=== PATIENT | female | born 1970 | race Two or more races ===

== ENCOUNTER 2016-12-05 18:00 | Inpatient (IN) | payer OTHER ==
[~2016-12-05] VITALS: Ht 162.6 cm; Wt 64.2 kg
[2016-12-05 18:15] LABS: Allen Test Yes; Base Excess -4.2 mmol/L (-2.0-2.0); Blood 02Sat 90.2 % (96-100); Blood MetHb 0.3 % (0.0-1.5); HHb 9.7 % (0.0-5.0); MODE MASK - BIPAP; PCO2 26.3 mmHg (35.0-45.0); PCO2(T) 28.1 mmHg (35.0-45.0); PO2 59.9 mmHg (80.0-100.0); PO2(T) 66.5 mmHg (80.0-100.0); Sample Type Arterial; Spont Vt 502; pH 7.454 (7.350-7.450)
[2016-12-05] MEDS ORDERED: methylPREDNISolone SOD SUCC 125 MG/2 ML VL IV ONE (18:15)
[2016-12-05] MEDS ORDERED: IPRATROPIUM BROM 0.5 MG/2.5ML INH SOL HHN ONE (18:15)
[2016-12-05] MEDS ORDERED: ALBUTEROL SULF 2.5 MG/0.5ML(0.5%) NEB SOLN HHN ONE (18:15)
[2016-12-05] MEDS ORDERED: LEVOFLOXACIN 500MG 100 ML IV ONE (18:15)
[2016-12-05] MEDS ORDERED: NOREPINEPHRINE BITARTRATE 250 ML IV SCH (19:30)
[2016-12-05 19:48] LABS: Basophils # (auto) 0 uL; Basophils % (auto) 0.2 % (0.0-2.0); Eosinophils # (auto) 0 uL; Eosinophils % (auto) 0.1 % (0.0-7.0); Hematocrit 40.5 % (36.0-46.0); Hemoglobin 13.5 g/dL (12.2-16.2); Lymphocytes # (auto) 0.9 uL; Lymphocytes % (auto) 15.8 % (10.0-50.0); Mean Corpuscular Hemoglobin 34.7 pg (28.0-32.0); Mean Corpuscular Hgb Conc. 33.2 g/dL (32.0-36.0); Mean Corpuscular Volume 104.5 fL (80.0-100.0); Mean Platelet Volume 6.5 fL (6.9-10.8); Monocytes # (auto) 0.2 uL; Monocytes % (auto) 2.9 % (0.0-12.0); Neutrophils # (auto) 4.4 uL; Platelet Count (auto) 141 10^3/uL (140-450); White Blood Cell 5.4 10^3/uL (4.4-10.8)
[2016-12-05 20:01] LABS: Potassium 3.6 mmol/L (3.5-5.1)
[2016-12-05 20:03] LABS: Lactic Acid w/Reflex 9.2 mmol/L (0.4-2.0)
[2016-12-05 20:05] LABS: Albumin 2.7 g/dL (3.4-5.0); BUN/Creatinine Ratio 8.3; Calcium 8.8 mg/dL (8.5-10.1); Magnesium 2.1 mg/dL (1.6-2.6)
[2016-12-05 20:08] LABS: Nucleated Red Blood Cells % 7.4 %
[2016-12-05 20:09] LABS: B-Type Natriuretic Peptide 90.72 pg/mL (0-100)
[2016-12-05 20:13] LABS: Bilirubin, Total 1.6 mg/dL (0.2-1.0); Total Protein 5.8 g/dL (6.4-8.2)
[2016-12-05 20:14] LABS: REFLEX LACTIC ACID YES OR NO YES
[2016-12-05 20:17] LABS: Temperature: 22.7 C (20.0-25.0)
[2016-12-05] MEDS ORDERED: SODIUM CHLORIDE 0.9% 1,000 ML IV ONE (20:30)
[2016-12-05 21:07] LABS: Anisocytosis Moderate; Platelet Estimate Adequate
[2016-12-05 21:08] LABS: Macrocytosis Moderate; Platelet Clumps FEW; Polychromasia Moderate; Tear Drop Cells FEW
[2016-12-05 21:21] LABS: Urine Bilirubin Negative (Negative); Urine Blood TRACE /uL (Negative); Urine Color Yellow (Yellow); Urine Glucose Normal (Normal); Urine Hyaline Cast FEW /lpf (0 - 2); Urine Ketone Negative (Negative); Urine Nitrite Negative (Negative); Urine RBC 3 /hpf (0 - 4); Urine Squamous Epithelial Cell FEW /hpf (<5); Urine Urobilinogen Normal (Negative); Urine pH 7.5 (5.0-8.0)
[2016-12-05] MEDS ORDERED: ACETAMINOPHEN 325 MG TAB PO ONE (21:30)
[2016-12-05] MEDS ORDERED: DEX4T PO (21:39)
[2016-12-05] MEDS ORDERED: POLYSOL OP (21:39)
[2016-12-05] MEDS ORDERED: CAPE1TAB11 PO (21:39)
[2016-12-05] MEDS ORDERED: BACL20TA PO (21:39)
[2016-12-05] MEDS ORDERED: TRAM50TA2 PO (21:39)
[2016-12-05] MEDS ORDERED: NITROGLYCERIN 0.4 MG SL TAB SL PRN (22:15)
[2016-12-05] MEDS ORDERED: HYDROcodone-ACET 5/325MG TAB PO PRN (22:15)
[2016-12-05] MEDS ORDERED: TEMAZEPAM 15 MG CAP PO PRN (22:15)
[2016-12-05] MEDS ORDERED: ACETAMINOPHEN 325 MG TAB PO PRN (22:15)
[2016-12-05] MEDS ORDERED: ALBUTEROL SULF 2.5 MG/0.5ML(0.5%) NEB SOLN NEB PRN (22:15)
[2016-12-05] MEDS ORDERED: ALBUMIN 5% 250 ML IV ONE ×2 (22:15→22:51)
[2016-12-05] MEDS ORDERED: ONDANSETRON HCL 4 MG/2 ML VIAL IV PRN (22:15)
[2016-12-05] MEDS ORDERED: MORPHINE SULF INJ 2 MG/ML SYRINGE 1ML IV PRN ×2 (22:15)
[2016-12-05 22:34] VITALS: BP 102/76
[2016-12-05] MEDS: SODIUM CHLORIDE 0.9% 1,000 ML IV SCH (23:05)
[2016-12-06] VITALS (55 sets, daily range): BP systolic 85–123; BP diastolic 50–85
[2016-12-06 03:38] LABS: Hematocrit 35.1 % (36.0-46.0); Mean Corpuscular Volume 102.7 fL (80.0-100.0); Mean Platelet Volume 6.7 fL (6.9-10.8); Platelet Count (auto) 119 10^3/uL (140-450); White Blood Cell 9.4 10^3/uL (4.4-10.8)
[2016-12-06 03:42] LABS: Red Cell Distribution Width 21.8 % (11.8-14.3)
[2016-12-06 03:43] LABS: Metamyelocytes % 0; Myelocytes % 0; Promyelocytes % 0; Reactive Lymphocytes 0
[2016-12-06 04:01] LABS: Lactic Acid w/Reflex 5.4 mmol/L (0.4-2.0)
[2016-12-06 04:06] LABS: Albumin 2.7 g/dL (3.4-5.0); BUN/Creatinine Ratio 17.6; Bilirubin, Total 1.9 mg/dL (0.2-1.0); Calcium 8.3 mg/dL (8.5-10.1); Potassium 3.2 mmol/L (3.5-5.1); Total Protein 5.7 g/dL (6.4-8.2)
[2016-12-06 04:24] LABS: REFLEX LACTIC ACID YES OR NO YES
[2016-12-06 04:36] LABS: Anisocytosis Moderate; Macrocytosis Slight; Ovalocytes FEW; Platelet Estimate Decreased
[2016-12-06 04:37] LABS: Polychromasia Slight; Tear Drop Cells FEW
[2016-12-06] MEDS ORDERED: CAPECITABINE 500 MG PO SCH ×2 (06:00)
[2016-12-06] MEDS: SODIUM CHLORIDE 0.9% 1,000 ML IV SCH (08:45)
[2016-12-06] MEDS ORDERED: ENOXAPARIN SOD 40 MG/0.4 ML SYRINGE SC SCH (10:00)
[2016-12-06] MEDS ORDERED: methylPREDNISolone SOD SUCC 125 MG/2 ML VL IV SCH ×2 (10:00→22:00)
[2016-12-06] MEDS ORDERED: LEVOFLOXACIN 750MG 150 ML IV SCH (10:00)
[2016-12-06] MEDS ORDERED: ASPirin 81 mg TAB PO SCH (10:00)
[2016-12-06] MEDS ORDERED: PANTOPRAZOLE 40 MG/10 ML VIAL IV SCH (10:00)
[2016-12-06] MEDS ORDERED: POTASSIUM CHL 20 Meq TABLET PO ONE (11:45)
[2016-12-06] MEDS ORDERED: ASPirin 81 mg TAB PO ONE (12:00)
[2016-12-06] MEDS ORDERED: PANTOPRAZOLE 40 MG TAB PO ONE (12:00)
[2016-12-07] MEDS ORDERED: PANTOPRAZOLE 40 MG TAB PO SCH (10:00)
[2016-12-07] MEDS ORDERED: ASPirin 81 mg TAB PO SCH (10:00)
== END 2016-12-06 16:50 | disposition short-term general hospital, planned readmission (82) | DRG 871 ==
LOC: ER 18:09 → TELE 18:10 → ICU WEST 23:44
PROVIDERS: ADMIT Nurse Practitioner; ATTEND Internal Medicine
PROC: 5A09357 Assistance with Respiratory Ventilation, Less than 24 Consecutive Hours, Continuous Positive Airway Pressure (ICD-10-PCS; principal; 2016-12-05)
DX: A41.9 Sepsis, unspecified organism (principal); J96.01 Acute respiratory failure with hypoxia; N17.0 Acute kidney failure with tubular necrosis; J15.9 Unspecified bacterial pneumonia; E43 Unspecified severe protein-calorie malnutrition; C50.912 Malignant neoplasm of unspecified site of left female breast; E87.6 Hypokalemia; I25.10 Atherosclerotic heart disease of native coronary artery without angina pectoris; Z68.24 Body mass index [BMI] 24.0-24.9, adult; Z85.3 Personal history of malignant neoplasm of breast; Z90.12 Acquired absence of left breast and nipple
CPT/HCPCS: 36415; 36600; 51702; 71010; 80053; 81001; 82805; 83605; 83735; 83880; 84484; 85007; 85025; 85027; 87040; 87081; 93005; 93306; 94660; 96365; 96375; 99291; C9113; J1956